=== PATIENT | male | born 1985 | race Caucasian/White ===

== ENCOUNTER → 2017-12-13 | Outpatient (CLI) | payer BC | LOC: COL.RAD 08:06 | DX: R10.11 Right upper quadrant pain (principal) | CPT/HCPCS: A9537 ==

== ENCOUNTER 2018-05-21 12:02 | Emergency (ER) | payer SELFPAY ==
[~2018-05-21 12:02] MED LIST: BACTRIM DS 8001 TAB PO; KLONOPIN 0.5MG0.5 MG PO; LOPRESSOR 225 MG/TAB PO; PROTONIX 40MG T40 MG PO; PROZAC40 MG PO
[2018-05-21 12:11] VITALS: BP 130/81; PULSE 62
== END 2018-05-21 12:17 | disposition home or self-care (01) ==
LOC: COL.ER 12:02
DX: S01.81XD Laceration without foreign body of other part of head, subsequent encounter (principal); X58.XXXD Exposure to other specified factors, subsequent encounter